=== PATIENT | female | born 1970 | race Caucasian/White ===

== ENCOUNTER 2020-07-20 09:09 | Outpatient (RCR) | payer OTHER, SELFPAY ==
[2020-07-20] MEDS: COVID-19 VACC, MRNA(PFIZER)/PF 30 MCG/0.3 ML SYRINGE IM (16:17)
[2020-08-10] MEDS: COVID-19 VACC, MRNA(PFIZER)/PF 30 MCG/0.3 ML SYRINGE IM (15:53)
== END 2020-07-20 23:59 ==
LOC: IMMUN 09:09
PROVIDERS: PCP Family Medicine; Visit Provider Family Medicine
DX: Z23 Encounter for immunization (principal)
CPT/HCPCS: 0001A; 0002A; 91300

== ENCOUNTER → 2022-08-21 | Outpatient (CLI) | payer OTHER, SELFPAY ==
--- NOTE | 2022-08-21 13:39 | RAD_ITS ---
STUDY: X-RAY CHEST REASON FOR EXAM: Female, 52 years old. HX OF BREAST CA TECHNIQUE: PA and lateral views of the chest. COMPARISON: None. FINDINGS: The lungs are clear and expanded. There is no demonstrated pleural abnormality. Normal size heart. Normal mediastinum and esau. Normal visualized pulmonary arteries. Normal visualized aortic arch and descending thoracic aorta. Normal visualized thoracic spine. Normal visualized ribs, clavicles, and shoulders. There is no demonstrated abnormality of the visualized soft tissue structures of the upper abdomen. RAD/Chest PA and Lateral IMPRESSION: Normal x-ray examination of the chest. Electronically Signed: Yazan Bateman MD at 21:38 EDT ,
== END | disposition home or self-care (01) ==
PROVIDERS: Referring Provider Internal Medicine Medical Oncology; Visit Provider Internal Medicine Medical Oncology
DX: Z85.3 Personal history of malignant neoplasm of breast (principal)
CPT/HCPCS: 71046

== ENCOUNTER → 2024-06-30 | Outpatient (CLI) | payer OTHER, SELFPAY ==
--- NOTE | 2024-06-30 08:54 | NM_ITS ---
PROCEDURE: BONE SCAN WHOLE BODY REASON FOR EXAM: Right hip pain. TECHNIQUE: Whole-body bone scan with anterior and posterior views. Imaging at 3.5 hours. RADIOPHARMACEUTICAL: 26.7 mCi Technetium-99m MDP IV COMPARISON: CORRELATION WITH EXISTING RELEVANT IMAGING STUDIES (i.e. x-ray, MRI, CT, etc.): No existing relevant imaging study available or patient did not have a previous relevant imaging study. FINDINGS: Bones: There is good uptake of the radiopharmaceutical. No suspicious foci of activity are identified. Kidneys: Normal activity is identified at both kidneys. NM/Bone Scan Whole Body IMPRESSION: NO SCINTIGRAPHIC EVIDENCE OF METASTATIC DISEASE TO BONE. Reading Location: [id number]
== END | disposition home or self-care (01) ==
PROVIDERS: Referring Provider Nurse Practitioner Family; Visit Provider Nurse Practitioner Family
DX: Z85.3 Personal history of malignant neoplasm of breast (principal)
CPT/HCPCS: 78306; A9503

== ENCOUNTER 2024-07-16 13:12 | Outpatient (CLI) | payer OTHER, SELFPAY ==
--- NOTE | 2024-07-16 13:16 | MRI_ITS ---
PROCEDURE: MRI BREAST W/O CONT BILAT REASON FOR EXAM: IMPLANT RUPTURE History of left breast cancer. She has had bilateral mastectomies with reconstructive surgery. Silicone implants were placed in 2012. Tingling in both breasts for 6 months. Right breast is swollen/flatter. TECHNIQUE: Bilateral breast MRI using a dedicated bilateral breast coil before and following intravenous contrast. Images reviewed with subtraction and DynaCAD. CONTRAST: None COMPARISON: None. FINDINGS: Amount of Fibroglandular Tissue: Almost entirely fat. Background Parenchymal Enhancement: Minimal RIGHT Breast: No suspicious mass. The breast implant appears to be intact. Radial folds are noted. LEFT Breast: No suspicious mass. The breast implant appears to be intact. Radial folds are noted. Other Findings: No suspicious axillary or internal mammary lymph nodes. Visualized portions of the thoracic and abdominal viscera are unremarkable. MRI/MRI BREAST W/O CONT BILAT IMPRESSION: Both breast implants appear to be intact. No extracapsular rupture is seen. B reast ultrasound may be of value if patient's symptoms continue. OVERALL BI-RADS CATEGORY: BI-RADS 2: BENIGN Reading Location: [id number]
== END 2024-07-16 23:59 | disposition home or self-care (01) ==
PROVIDERS: Referring Provider Plastic Surgery; Visit Provider Plastic Surgery
DX: R92.8 Other abnormal and inconclusive findings on diagnostic imaging of breast (principal); Z85.3 Personal history of malignant neoplasm of breast
CPT/HCPCS: 77047